=== PATIENT | female | born 1975 | race Two or more races ===

== ENCOUNTER → 2017-01-28 | Outpatient (CLI) | payer MEDICAID ==
[~2017-01-28] VITALS: Ht 162.6 cm; Wt 74.4 kg
[~2017-01-28] MED LIST: ADENOSINE 61 MG in GIVE UN-DILUTED 0 ML IV ONE; ADENOSINE 90 MG/30 ML INJ IV ONE
== END | disposition home or self-care (01) ==
LOC: Rad HDHVI 07:39
PROVIDERS: ATTEND Internal Medicine Cardiovascular Disease
DX: R07.89 Other chest pain (principal); Z82.49 Family history of ischemic heart disease and other diseases of the circulatory system
CPT/HCPCS: 78452; 93005; 93306; 96374; 96375; A9500; J0153

== ENCOUNTER 2017-04-28 23:50 | Emergency (ER) | payer MEDICAID ==
[~2017-04-28] VITALS: Ht 180.3 cm; Wt 68.0 kg
[2017-04-29] MEDS ORDERED: IBUPROFEN 600 MG TAB PO ONE (00:45)
[2017-04-29 08:00] VITALS: BP 121/56
== END 2017-04-29 07:52 | disposition home or self-care (01) ==
LOC: ER 23:50 → EDBD 23:50 → ER 04-29 07:52
DX: S39.012A Strain of muscle, fascia and tendon of lower back, initial encounter (principal); S20.221A Contusion of right back wall of thorax, initial encounter; E27.9 Disorder of adrenal gland, unspecified; W19.XXXA Unspecified fall, initial encounter; Y93.89 Activity, other specified; Y99.9 Unspecified external cause status; Y92.811 Bus as the place of occurrence of the external cause
CPT/HCPCS: 72128; 72131; 73030